=== PATIENT | female | born 1950 | race Caucasian/White ===

== ENCOUNTER 2016-12-02 12:53 | Outpatient (CLI) | payer OTHER | END 2016-12-02 20:35 | disposition home or self-care (01) | LOC: SMA 12:53 | PROVIDERS: ATTEND Family Medicine | DX: Z12.31 Encounter for screening mammogram for malignant neoplasm of breast (principal) | CPT/HCPCS: G0202 ==

== ENCOUNTER 2017-01-30 13:31 | Outpatient (CLI) | payer OTHER | END 2017-01-30 19:19 | disposition home or self-care (01) | LOC: SMA 13:31 | PROVIDERS: ATTEND Family Medicine | DX: N63.10 Unspecified lump in the right breast, unspecified quadrant (principal); N63.20 Unspecified lump in the left breast, unspecified quadrant; R92.8 Other abnormal and inconclusive findings on diagnostic imaging of breast | CPT/HCPCS: 76641; G0206 ==

== ENCOUNTER 2018-01-24 10:47 | Outpatient (CLI) | payer OTHER | END 2018-01-24 21:16 | disposition home or self-care (01) | LOC: SMA 10:47 | PROVIDERS: ATTEND Family Medicine | DX: Z12.31 Encounter for screening mammogram for malignant neoplasm of breast (principal) | CPT/HCPCS: 77067 ==

== ENCOUNTER 2019-02-01 12:33 | Outpatient (CLI) | payer BC | END 2019-02-01 21:17 | disposition home or self-care (01) | LOC: SMA 12:33 | PROVIDERS: ATTEND Family Medicine | DX: Z12.31 Encounter for screening mammogram for malignant neoplasm of breast (principal) | CPT/HCPCS: 77067 ==